=== PATIENT | female | born 1990 | race Caucasian/White ===

== ENCOUNTER 2022-08-09 19:19 | Emergency (ER) | payer MEDICAID ==
[~2022-08-09] VITALS: Ht 167.6 cm; Wt 78.2 kg
[~2022-08-09 19:19] MED LIST: DIPH25CA83 PO
[2022-08-09 19:52] VITALS: BP 135/94
[2022-08-09 20:16] LABS: BASOPHILS # (AUTO) 0.1 X10'3 (0-0.2); BASOPHILS % (AUTO) 0.7 % (0-1); EOSINOPHILS # (AUTO) 0.2 X10'3 (0-0.9); EOSINOPHILS % (AUTO) 2.2 % (0-6); HEMATOCRIT 41.8 % (35.0-45.0); HEMOGLOBIN 14.2 g/dl (12.0-16.0); LYMPHOCYTES # (AUTO) 2.5 X10'3 (1.1-4.8); LYMPHOCYTES % (AUTO) 33.7 % (21-51); MEAN CORPUSCULAR HEMOGLOBIN 29.5 PG (27.0-31.0); MEAN CORPUSCULAR HGB CONC 33.9 g/dL (33.0-36.5); MEAN CORPUSCULAR VOLUME 87.1 FL (78-98); MEAN PLATELET VOLUME 7.5 FL (7.4-10.4); MONOCYTES # (AUTO) 0.6 X10'3 (0-0.9); MONOCYTES % (AUTO) 8.4 % (2-12); NEUTROPHILS # (AUTO) 4.1 X10'3 (1.8-7.7); PLATELET COUNT 241 X10'3 (140-440); WHITE BLOOD COUNT 7.5 X10'3 (4.5-11.0)
[2022-08-09 20:32] LABS: ALANINE AMINOTRANSFERASE 49 U/L (12-78); ALBUMIN 3.9 G/DL (3.4-5.0); ALBUMIN/GLOBULIN RATIO 1.1 (1.1-1.5); ALKALINE PHOSPHATASE 94 IU/L (46-116); ANION GAP 9 (8-16); ASPARTATE AMINO TRANSFERASE 29 U/L (10-37); BILIRUBIN,TOTAL 0.3 MG/DL (0.1-1.0); BLOOD UREA NITROGEN 11 MG/DL (7-18); BUN/CREATININE RATIO 14.7 (6.6-38.0); CALCIUM 9.3 MG/DL (8.5-10.1); CHLORIDE 104 MMOL/L (99-107); CREATININE 0.75 MG/DL (0.40-0.90); GLUCOSE 97 MG/DL (70-104); POTASSIUM 3.5 MMOL/L (3.5-5.1); SODIUM 140 MMOL/L (135-145); TOTAL CARBON DIOXIDE 27.2 MMOL/L (24-32); TOTAL PROTEIN 7.6 G/DL (6.4-8.2); eGFR 90 ML/MIN
[2022-08-09 20:35] LABS: LIPASE 93 U/L (73-393)
== END 2022-08-10 02:17 | disposition left against medical advice (07) ==
LOC: ER 19:20
DX: R10.9 Unspecified abdominal pain (principal); Z53.21 Procedure and treatment not carried out due to patient leaving prior to being seen by health care provider
CPT/HCPCS: 36415; 80053; 83690; 84484; 85025

== ENCOUNTER 2022-09-22 10:24 | Day surgery (SDC) | payer OTHER, MEDICAID ==
[2022-09-21 16:33] LABS: BASOPHILS % (AUTO) 0.4 % (0-1); EOSINOPHILS # (AUTO) 0.1 X10'3 (0-0.9); EOSINOPHILS % (AUTO) 1.9 % (0-6); LYMPHOCYTES # (AUTO) 1.9 X10'3 (1.1-4.8); LYMPHOCYTES % (AUTO) 26.4 % (21-51); MEAN CORPUSCULAR HEMOGLOBIN 29.8 PG (27.0-31.0); MEAN CORPUSCULAR HGB CONC 34.2 g/dL (33.0-36.5); MEAN CORPUSCULAR VOLUME 87.4 FL (78-98); MEAN PLATELET VOLUME 7.5 FL (7.4-10.4); MONOCYTES # (AUTO) 0.4 X10'3 (0-0.9); MONOCYTES % (AUTO) 6.2 % (2-12); NEUTROPHILS # (AUTO) 4.6 X10'3 (1.8-7.7); NEUTROPHILS % (AUTO) 65.1 % (42-75); PRE OP HEMATOCRIT 41.7 % (35.0-45.0); PRE OP HEMOGLOBIN 14.2 g/dL (12.0-16.0); PRE OP PLATELET COUNT 214 X10'3 (140-440); RED BLOOD COUNT 4.77 X10'6 (4.20-5.60); RED CELL DISTRIBUTION WIDTH 13.6 % (11.5-14.5)
[2022-09-21 16:53] LABS: ALBUMIN 3.8 G/DL (3.4-5.0); ALKALINE PHOSPHATASE 92 IU/L (46-116); BLOOD UREA NITROGEN 11 MG/DL (7-18); BUN/CREATININE RATIO 17.7 (6.6-38.0); CALCIUM 9.2 MG/DL (8.5-10.1); CHLORIDE 105 MMOL/L (99-107); CREATININE 0.62 MG/DL (0.40-0.90); PRE OP ALT 30 U/L (30-65); PRE OP ANION GAP 7 (8-16); PRE OP AST 23 U/L (10-37); PRE OP BILIRUB, TOTAL 0.3 MG/DL (0.0-1.0); PRE OP GLUCOSE 87 MG/DL (70-104); PRE OP POTASSIUM 3.6 MMOL/L (3.4-5.1); PRE OP SODIUM 140 MMOL/L (135-145); TOTAL CARBON DIOXIDE 28.5 MMOL/L (24-32); TOTAL PROTEIN 7.6 G/DL (6.4-8.2); eGFR > 90 ML/MIN
[2022-09-21 17:04] LABS: HCG SERUM QL NEGATIVE
[~2022-09-22] VITALS: Ht 167.6 cm; Wt 77.0 kg
[2022-09-22] VITALS (11 sets, daily range): BP systolic 111–128; BP diastolic 66–88
[~2022-09-22 10:24] MED LIST changes: -DIPH25CA83 PO; +INDOCYANINE GREEN 25 MG/10 ML VIAL IV ONE; +NORE0.3520 PO; +ceFOXitin 2GM-NS 100mL ADDvant 100 ML IV ONE; +famotidine 20mg tablet PO ONE; +ringers solution, lacted 1,000 ML IV SCH
[2022-09-22] MEDS ORDERED: BUPIVAcaine/PF 2.5mg/ml (0.25%) 10ml vial ONE (12:15)
[2022-09-22] MEDS ORDERED: LIDOcaine 1% 30ml preserv. free vial ONE (12:15)
[2022-09-22] MEDS ORDERED: fentaNYL/PF 50MCG/1 ML 2ML syringe ONE ×2 (12:30→12:52)
[2022-09-22] MEDS ORDERED: midazolam 1 mg/ML 2ml injection ONE (12:31)
[2022-09-22] MEDS ORDERED: ondansetron/PF 4mg/2ml inj IV PRN (12:40)
[2022-09-22] MEDS ORDERED: meperidine/PF 25mg/ml syringe IV PRN ×2 (12:40)
[2022-09-22] MEDS ORDERED: ringers solution, lacted 1,000 ML IV SCH (12:40)
[2022-09-22] MEDS ORDERED: HYDROmorphone/PF 0.2 MG/ML SYRINGE IV PRN ×2 (12:40)
[2022-09-22] MEDS ORDERED: acetaminophen 1,000mg/100ml IV 100 ML IV ONE (12:52)
[2022-09-22] MEDS ORDERED: propofol inj 20 ML IV ONE (12:53)
[2022-09-22] MEDS ORDERED: dexamethasone sod phosphate 4mg/ml inj. ONE (12:53)
[2022-09-22] MEDS ORDERED: LIDOcaine 2% (20mg/ml) 5ml vial ONE (12:53)
[2022-09-22] MEDS ORDERED: ondansetron/PF 4mg/2ml inj ONE (12:53)
[2022-09-22] MEDS ORDERED: neostigmine methylsulfate 1 MG/ML 10ml vial ONE (12:53)
[2022-09-22] MEDS ORDERED: rocuronium 10mg/ml inj IV ONE (12:53)
[2022-09-22] MEDS ORDERED: glycopyrrolate 0.2mg/ml inj ONE (12:53)
--- NOTE | 2022-09-22 13:29 | NUR ---
PT RECEIVED FROM THE OPERATING ROOM IN STABLE CONDITION. REPORT GIVEN BY ANESTHESIA. PT IS ABLE TO MOVE ALL EXTREMITIES, COMPLAINS OF A 1 OUT OF 10 ON THE PAIN SCALE. ABDOMINAL PRESSURE/PAIN. PT CALLED HER GRANDMOTHER TO COME AND PICK HER UP IN APPROX AN HOUR.
[2022-09-22] MEDS ORDERED: oxyCODONE/APAP 5-325mg tablet PO PRN (13:40)
--- NOTE | 2022-09-22 13:45 | NUR ---
PT ON THE PHONE WITH PHARMACY, INSURANCE HAS CHANGED AND PHARMACY REQUESTING COPY BEFORE THEY WILL FILL HER PAIN MEDICATION. PT GIVEN A NORCO HERE AND INSTRUCTED TO TAKE HER NEXT DOSE DIRECTED IN 4-6 HRS
--- NOTE | 2022-09-22 14:39 | NUR ---
PT ASSISTED GETTING DRESSED, IV D/HAY WITH CATHETER INTACT. GRANDMOTHER IN THE [address], PT TAKEN IN WHEELCHAIR WHERE GRANDMOTHER TRANSPORTED HER HOME. PT INSTRUCTED TO NOT LIFT OVER 15 POUNDS. PT STATES HER BABY IS 18 POUNDS AND SHE FEELS THE NEED TO LIFT THE BABY. SHE SAID SHE SPOKE TO THE DOCTOR ABOUT THIS ISSUE
== END 2022-09-22 14:39 | disposition home or self-care (01) ==
LOC: PAS 10:24
PROVIDERS: ATTEND Surgery
DX: K80.10 Calculus of gallbladder with chronic cholecystitis without obstruction (principal); Z79.899 Other long term (current) drug therapy; Z98.890 Other specified postprocedural states; Z87.891 Personal history of nicotine dependence; Z88.6 Allergy status to analgesic agent; Z87.442 Personal history of urinary calculi
CPT/HCPCS: 36415; 47563; 80053; 82948; 84703; 85025; J0131; J0694; J1100; J2250; J2405; J2704; J2710; J3010; J3490; J7030; J7120; Z7506; Z7508; Z7512; A4215; A4618; A7000